=== PATIENT | female | born 1970 | race Caucasian/White ===

== ENCOUNTER 2016-11-02 13:24 | Inpatient (IN) | payer OTHER ==
[~2016-11-02] VITALS: Ht 170.2 cm; Wt 86.2 kg
--- NOTE | 2016-11-02 13:30 | NUR ---
PT TAKEN TO [place] FOR EKG
--- NOTE | 2016-11-02 13:48 | NUR ---
PT TO ED STATING "MY HEART WAS BEATING REALLY FAST", ALSO HAD C/P AT THAT TIME. STARTED A FEW HOURS AGO. CURRENTLY DENIES SOB, DIFF BREATHING, C/P.
--- NOTE | 2016-11-02 13:59 | ED CARDIAC/CP/PALPITATIONS ---
History of Present Illness General Chief Complaint: Palpitations Stated Complaint: PALPITATIONS Source: patient, family Exam Limitations: no limitations Vital Signs & Intake/Output Vital Signs & Intake/Output Vital Signs Date Time Temp Pulse Resp B/P Pulse O2 O2 Flow FiO2 Ox Delivery Rate 11/02 1512 116 18 104/60 97 Nasal 2.0L Cannula 11/02 1452 118 110/70 11/02 1440 116 102/60 11/02 1433 212 18 121/89 11/02 1433 98.1 148 20 121/89 99 Nasal 2.0L Cannula 11/02 1406 98 Room Air 11/02 1345 99.2 123 20 121/84 97 Room Air Allergies Coded Allergies: azithromycin (DIFFICULTY BREATHING 11/02/16) benzonatate (DIFFICULTY BREATHING 11/02/16) oxycodone (From PERCOCET) (ITCH 11/02/16) Reconcile Medications No Known Home Medications Triage Note: PT TO ED STATING "MY HEART WAS BEATING REALLY FAST", ALSO HAD C/P AT THAT TIME. STARTED A FEW HOURS AGO. CURRENTLY DENIES SOB, DIFF BREATHING, C/P. Triage Nurses Notes Reviewed? yes : No Patient currently breastfeeds: No HPI: Patient was at work sitting at her desk when all of a sudden she felt like her heart was racing and she developed a substernal chest pressure radiating to the left shoulder. Patient became a little bit diaphoretic. Patient became concerned when home and changed and then came into the emergency room. Upon presentation to the emergency room she states that the palpitations had resolved however she still has the pressure however it has gotten better. At its worst the chest pressure was 6 out of 10 and is currently 2 out of 10. There is no shortness of breath. There is no orthopnea or dyspnea on exertion. Patient states when she was having the palpitations she felt very lightheaded and like she was given a pass out however she did not do so. Past History Travel History Traveled to No past 21 day No Medical History Any Pertinent Medical History? see below for history Neurological: migraine EENT: NONE Cardiovascular: NONE Respiratory: NONE Gastrointestinal: NONE Hepatic: NONE Renal: NONE Musculoskeletal: NONE Psychiatric: NONE Endocrine: NONE Blood Disorders: NONE Cancer(s): NONE Surgical History Surgical History: non-contributory Psychosocial History What is your primary language Spanish Tobacco Use: Current Daily Use Daily Tobacco Use Amount/Type: => 5 Cigarettes daily ETOH Use: occasional use Illicit Drug Use: denies illicit drug use Family History Hx Contributory? No Review of Systems Review of Systems Constitutional: Reports: no symptoms. EENTM: Reports: no symptoms. Respiratory: Reports: no symptoms. Cardiovascular: Reports: see HPI, chest pain, palpitations. GI: Reports: no symptoms. Genitourinary: Reports: no symptoms. Musculoskeletal: Reports: no symptoms. Skin: Reports: no symptoms. Neurological/Psychological: Reports: no symptoms. Hematologic/Endocrine: Reports: no symptoms. Immunologic/Allergic: Reports: no symptoms. All Other Systems: Reviewed and Negative Physical Exam Physical Exam General Appearance: well developed/nourished, alert, awake, anxious, mild distress Head: atraumatic, normal appearance Eyes: Bilateral: PERRL, EOMI. Ears, Nose, Throat: normal pharynx, normal ENT inspection Neck: normal inspection, supple Respiratory: normal breath sounds, chest non-tender, no respiratory distress, lungs clear Cardiovascular: normal peripheral pulses, tachycardia Gastrointestinal: normal bowel sounds, soft, no organomegaly Back: normal inspection, normal range of motion Extremities: normal inspection, normal capillary refill, normal range of motion, no edema Neurologic/Psych: no motor/sensory deficits, awake, alert, oriented x 3, normal gait, normal mood/affect Skin: intact, normal color, warm/dry Lymphatic: no anterior cervical laison Core Measures ACS in differential dx? Yes Severe Sepsis Present: No Septic Shock Present: No Progress Differential Diagnosis: atrial fibrillation, hyperthyroid, myocarditis, pericarditis, pulmonary embolism, PVCs/PACs, WPW syndrome Plan of Care: Orders Procedure Date/time Status Patient Data 11/02 1609 Active Admit to inpatient 11/02 1608 Active EKG 11/02 1525 Active EKG 11/02 1425 Active THYROID STIMULATING HORMONE 11/02 1403 Complete HUMAN BETA HCG SCREEN 11/02 1403 Complete FREE T4 11/02 1403 Complete D-DIMER 11/02 1403 Complete Telemetry/Seal Extrusion Operator 11/02 1359 Active TROPONIN LEVEL 11/02 1356 Complete COMPREHENSIVE METABOLIC PANEL 11/02 1356 Complete CBC WITHOUT DIFFERENTIAL 11/02 1356 Complete EKG 11/02 1329 Active Current Medications Sig/Thanh Start time Last Medication Dose Stop Time Status Admin Diltiazem HCl 125 MG Q12H 11/02 1615 UNVr (Cardizem DRIP) Dextrose/Water 100 ML (D5W) Laboratory Tests 11/02/16 1404: CBC w Diff NO MAN DIFF REQ, RBC 4.38, MCV 94.8, MCH 32.2 H, RDW 13.6, MPV 8.0, Gran % 58.6, Lymphocytes % 30.4, Monocytes % 6.5, Eosinophils % 4.0, Basophils % 0.5, Absolute Granulocytes 5.3, Absolute Lymphocytes 2.7, Absolute Monocytes 0.6 , Absolute Eosinophils 0.4, Absolute Basophils 0, PUBS MCHC 34.0 11/02/16 1403: Anion Gap 11, Estimated GFR > 60, BUN/Creatinine Ratio 20.0, Glucose 98, Calcium 9.9, Total Bilirubin 0.4, AST 20, ALT 33, Alkaline Phosphatase 74, Troponin I < 0.01, Total Protein 7.5, Albumin 4.0, Globulin 3.5, Albumin/Globulin Ratio 1.1, TSH 0.791, Free T4 1.15, Total Beta HCG NEGATIVE, D-Dimer < 200 11/02/16 1359: TSH Cancelled, Free T4 Cancelled, Total Beta HCG Cancelled, D-Dimer Cancelled Initial ED EKG: SINUS TACHYCARDIA 110 Repeat EKG: changed (a. FIB WITH rvr) Rhythm Strip: SINUS TACHYCARDIA TO svt TO a. FIB WITH rvr Comments: While in the emergency room patient went into an SVT at 225 bpm. Patient became symptomatic feeling very lightheaded and like her heart was racing. Patient was given 6 mg of IV adenosine which broke the SVT into an A. fib with RVR. Departure Departure Disposition: STILL A PATIENT Condition: Guarded Clinical Impression Primary Impression: Atrial fibrillation with RVR Referrals: ANNIKA BROWN,BERNADETTE Galloway (PCP/Family) Departure Forms: Customer Survey General Discharge Information Prescriptions: Current Visit Scripts No Known Home Medications Admission Note Spoke With: Joshua OSBORNE MD Documentation of Exam: Documentation of any treatments & extenuating circumstances including Concerns Regarding Discharge (functional status, medication knowledge or non-compliance, living conditions, etc.) that warrant an admission rather than observation: [ Telemetry monitoring, cardiology evaluation, serial enzymes, IV Cardizem for rate control] Critical Care Note Critical Care Note Critical Care Time: mins: (45 MIN)
--- NOTE | 2016-11-02 14:08 | NUR ---
46 YEAR OLD FEMALE STATES THAT ABOUT 2 HOURS AGO SHE FELT LIKE HER HEART STARTED RACING AND SHE WAS FEELING SOB. ALSO COMPLAINS OF A PRESSURE IN HER CHEST. PAIN IS NON RADIATING, O2 SAT 98 % ON RA, SINUS TACH ON MONITOR WITH HR 110-120 AT THIS TIME. LABS SENT
[2016-11-02 14:20] LABS: ABSOLUTE BASOPHIL COUNT 0 /CUMM (0.0-0.2); ABSOLUTE EOSINOPHIL COUNT 0.4 /CUMM (0.0-0.7); ABSOLUTE GRANULOCYTE CT 5.3 /CUMM (1.4-6.5); ABSOLUTE LYMPH COUNT 2.7 /CUMM (1.2-3.4); ABSOLUTE MONOCYTE COUNT 0.6 /CUMM (0.10-0.60); BASOPHIL % 0.5 % (0.0-2.0); GRANULOCYTE % 58.6 % (42.2-75.2); HEMATOCRIT 41.5 % (37-47); MEAN CORPUSCULAR HGB 32.2 PG (27.0-31.0); MEAN CORPUSCULAR VOLUME 94.8 FL (81.0-99.0); PLATELET COUNT 297 /CUMM (130-400); RBC DISTRIBUTION WIDTH 13.6 % (11.5-14.5); RED BLOOD CELL CT 4.38 /CUMM (4.20-5.40)
--- NOTE | 2016-11-02 14:35 | NUR ---
THIS NURSE NOTED PT SVT ON MONITOR HR 248, IMMEDIATLY AT BEDSIDE , LINE PLACED FLUIDS HOOKED UP AND PT HOOKED TO EKG FOR RHYTHM STRIP,PT MEDICATED WITH 6 MG ADENOSINE , AFTER MED PT SINUS TACH HR 128. HR INCREASED TO 160, PT MEDICATED PER ORDER WITH 25 MG PO METOPROLOL AND 5 MG IV . PT STATES THAT SHE FEELS HEAVINESS IN HER CHEST. BP121/89
--- NOTE | 2016-11-02 14:43 | NUR ---
BP102/60 MANUAL, FLUIDS CONTINUE TO INFUSE
--- NOTE | 2016-11-02 14:48 | NUR ---
PT SINUS TACH ON MONITOR HR 114 AT THIS T AMRIT
--- NOTE | 2016-11-02 15:13 | NUR ---
RE-EVAL BY ER PATIENT DEINES CP OR SOB
--- NOTE | 2016-11-02 15:27 | NUR ---
HR TRENDING HR INCREASING PERIODS OF A-FIB REPEAT EKG DONE PATIENT DENIES CP OR SOB
--- NOTE | 2016-11-02 16:17 | NUR ---
SEEN BY CARDIOLOGY CARDIZEM GTT AT 5 MG PER HR
--- NOTE | 2016-11-02 16:36 | NUR ---
B/P / CARDIZEM GTT DECREASED TO 2.5 MG/HR
--- NOTE | 2016-11-02 16:53 | History & Physical ---
POPPY [place] [place]: General Information and HPI MD Statement: I have seen and personally examined NICKOLAS LANGFORD and documented this H&P. The patient is a 46 year old F who presented with a patient stated chief complaint of chest pain and palpitations. Source of Information: patient, old records Exam Limitations: no limitations History of Present Illness: 46 y/o F with no significant PMHx who presents with left-sided chest pain radiating to left shoulder of several hours radiation. Pain started acutely on the afternoon of current presentation while patient was sitting at desk. Initially it was 8/10 and sharp however 10 minutes later, it evolved into chest heaviness. Sharp pain recurred again while in the ED. There are no alleviating or exacerbating factors. Pain is associated with shortness of breath but not nausea, vomiting, diaphoresis or lightheadedness. Patient complains of a headache that has been ongoing for several days. Of note, patient has been under significant stress lately due to family issues. Patient reports drinking two cups of coffee in the morning before the onset of chest pain which is her usual intake. Of note patient presented to the ED with chest pain in 2009 with an EKG revealing sinus tachycardia with heart rate in the 90s and was subsequently discharged home on Motrin. Of note, family history is significant for arrhythmia in her father. Allergies/Medications Allergies: Coded Allergies: azithromycin (DIFFICULTY BREATHING 11/02/16) benzonatate (DIFFICULTY BREATHING 11/02/16) oxycodone (From PERCOCET) (ITCH 11/02/16) Home Med list Apixaban (Eliquis) 5 MG TABLET 5 MG PO BID BLOOD THINNER FOR AFIB Diltiazem HCl (Cardizem) 30 MG TABLET 30 MG PO Q8 ATRIAL FIBRILLATION NEW Past History Travel History Traveled to No past 21 day No Medical History Neurological: migraine EENT: NONE Cardiovascular: NONE Respiratory: NONE Gastrointestinal: NONE Hepatic: cholelithiasis Renal: NONE Musculoskeletal: NONE Psychiatric: NONE Endocrine: NONE Blood Disorders: NONE Cancer(s): NONE COMPLIANCE TESTER/Reproductive: overian cyst Surgical History Surgical History: cholecystectomy, unilateral salphingo-oophorectomy Past Family/Social History Family History Relations & Conditions if any FATHER Cardiac arrhythmia Psychosocial History Where do you live? Home Who Do You Live With? boyfriend Services at Home: None Primary Language: Kiswahili Smoking Status: Current Everyday Smoker (Smokes 1/2 PPD, ~10 Pack-Years) ETOH Use: occasional use Illicit Drug Use: denies illicit drug use Functional Ability ADLs Independent: dressing, eating, toileting, bathing. Ambulation: independent IADLs Independent: shopping, housework, finances, food prep, telephone, transportation , medication admin. 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 EENTM: Reports: no symptoms. Cardiovascular: Reports: chest pain, palpitations. Denies: peripheral edema. Respiratory: Reports: short of breath (only with chest pain). GI: Denies: abdominal pain, constipation, diarrhea, nausea, vomiting. Genitourinary: Reports: no symptoms. Musculoskeletal: Reports: no symptoms. Skin: Reports: no symptoms. Neurological/Psychological: Reports: headache. Hematologic/Endocrine: Reports: no symptoms. Immunologic/Allergic: Reports: no symptoms. All Other Systems: Reviewed and Negative Exam & Diagnostic Data Last 24 Hrs of Vital Signs/I&O Vital Signs Date Time Temp Pulse Resp B/P Pulse O2 O2 Flow FiO2 Ox Delivery Rate 11/03 0051 98.0 95 20 95/60 97 Room Air 11/02 1838 98.3 123 17 105/68 97 Room Air 11/02 1731 112 18 96/55 97 Room Air 11/02 1720 112 18 95/56 97 Room Air 11/02 1637 118 18 92/54 97 Room Air 11/02 1617 124 18 104/56 97 Room Air 11/02 1512 116 18 104/60 97 Nasal 2.0L Cannula 11/02 1452 118 110/70 11/02 1440 116 102/60 11/02 1433 212 18 121/89 11/02 1433 98.1 148 20 121/89 99 Nasal 2.0L Cannula 11/02 1406 98 Room Air 11/02 1345 99.2 123 20 121/84 97 Room Air Intake & Output 11/03 0800 11/03 0000 11/02 1600 Intake Total 1630 0 Output Total Balance 1630 0 Intake, IV 1510 Intake, Oral 120 0 Patient 86.183 kg 95.254 kg Weight Physical Exam General Appearance Alert, Oriented X3, No Acute Distress HEENT Atraumatic, Mucous Membr. moist/pink Neck Supple Cardiovascular Normal S1, Normal S2, Irregular Rate, Tachycardic Lungs Clear to Auscultation Abdomen Soft, No Tenderness, Positive Bowel Sounds Extremities No Clubbing, No Cyanosis, No Edema Last 24 Hrs of Labs/Sudheer: Laboratory Tests 11/02/162044: Troponin I < 0.01 11/02/16 1404: CBC w Diff NO MAN DIFF REQ, RBC 4.38, MCV 94.8, MCH 32.2 H, RDW 13.6, MPV 8.0, Gran % 58.6, Lymphocytes % 30.4, Monocytes % 6.5, Eosinophils % 4.0, Basophils % 0.5, Absolute Granulocytes 5.3, Absolute Lymphocytes 2.7, Absolute Monocytes 0.6 , Absolute Eosinophils 0.4, Absolute Basophils 0, PUBS MCHC 34.0 11/02/16 1403: Anion Gap 11, Estimated GFR > 60, BUN/Creatinine Ratio 20.0, Glucose 98, Calcium 9.9, Total Bilirubin 0.4, AST 20, ALT 33, Alkaline Phosphatase 74, Troponin I < 0.01, Total Protein 7.5, Albumin 4.0, Globulin 3.5, Albumin/Globulin Ratio 1.1, TSH 0.791, Free T4 1.15, Total Beta HCG NEGATIVE, D-Dimer < 200 11/02/16 1359: TSH Cancelled, Free T4 Cancelled, Total Beta HCG Cancelled, D-Dimer Cancelled Diagnostic Data EKG Results Atrial fibrillation HR 122 QTc 428 Assessment/Plan Assessment: 46 y/o M with no significant PMHx who presents with new-onset atrial fibrillation and chest pain. #New onset atrial fibrillation: Etiology unclear Of note, father has a history of cardiac arrhythmia. Thyroid function tests normal. * Place under observation in telemetry for continuous cardiac monitoring. * Cardiology following. Appreciate recs. * Continue Cardizem IV drip. * ECHO pending. * No need for anticoagulation given [id number] score of 0. * Check lipid panel in the AM. * Discharge patient on beta-emerald tomorrow if patient spontaneously reverts to normal sinus rhythm. * Check CBC and BMP. #Chest pain: Troponin negative. EKG without ST-T wave abnormalities. * Serial EKG and troponins. Diet: Regular DVT PPx: Lovenox and ALPs CODE: FULL As Ranked By This Provider Problem List: 1. Chest pain 2. New onset atrial fibrillation Core Measures/Miscellaneous Acute Coronary Syndrome ACS Diagnosis: No Cerebrovascular Accident CVA/TIA Diagnosis: No Congestive Heart Failure CHF Diagnosis: No Venous Thromboembolism VTE Risk Factors: Age > 40 No [facility] VTE prophylaxis d/t: No contraindications No VTE Pharm Prophylaxis d/t: No contraindications VTE Diagnosis: No VTE Type: NONE VTE Confirmed by (Test): NONE Severe Sepsis Severe Sepsis Present: No Septic Shock Septic Shock Present: No Miscellaneous Documentation Attending Case Discussed With: Joshua OSBORNE MD Primary Care Physician: BERNADETTE ROBLERO MD Patient sees these Specialists None Level of Patient Care: Telemetry CAILIN VOGT 11/02/16 2024: Resident Review Statement Resident Statement: examined this patient, discussed with internet project manager, agreed with internet project manager, amended to note Other Findings: 46-year-old lady with no significant past medical history came with chief complaint of chest pain and chest heaviness to the emergency room today. Patient reported in the morning she had chest pain radiated to left hand with palpitations and lightheadedness and she came to the hospital for that. Patient denies any nausea, vomiting, fevers, chills, recent sick contacts, recent travel. Patient does report of having palpitation long time ago once. In the ED she developed SVT and after getting adenosine and metoprolol IV and by mouth for 10 changed to A. fib and she was put on IV Cardizem. However her blood pressure dropped to 92/54 and 2 L normal saline bolus was given as well. Patient is social drinker and an her father had a history of arrhythmia long time ago Other patient vital signs were unremarkable, physical exam is noted for tachycardia full details are above. EKG showed A. fib with no acute ST-T changes, 122, QTC 428 CBC, BEP, troponin, TSH were within normal limits Assessment and plan #New onset A. fib with chest pain -Chadvasc score 0 and patient just had palpitations today so no need for anticoagulation for now -titrate Cardizem 2 get her heart rate lower than 110 per min -EKG and troponin 3 -Echocardiogram in the morning -Check lipid panel tomorrow -Aspirin 325 given once, Tylenol for pain Prophylaxis radar mechanic and levonox, full code, Tylenol for pain, regular diet
--- NOTE | 2016-11-02 16:55 | NUR ---
BED ASSIGNMENT 176
--- NOTE | 2016-11-02 17:00 | NUR ---
SEEN BY HOUSE STAFF B/P 91/47 HR 112 A-FIB CARDIZEM AT 2.5 MG/HR PATIENT DENIES CP OR SOB DENIES DIZZINESS
--- NOTE | 2016-11-02 17:29 | NUR ---
REPORT GIVEN TO TELEMTRY MONITOR A-FIB RATE 112 B/P 96/55 DENIES WEAKNESS OR DIZZINESS CARDIZEM CONTINUES AT 2.5 MG/HR 2ND LITER NS AT BOLUS DENIES CP OR SOB
--- NOTE | 2016-11-02 18:10 | Cons- Cardiology ---
General Information and HPI Consulting Request Date of Consult: 11/02/16 Requested By: Joshua OSBORNE MD Reason for Consult: Atrial fibrillation Source of Information: patient, family Exam Limitations: no limitations History of Present Illness: 46 year old female with no significant past history. This AM while seated developed rapid heart rate. Initially in the ER she was thought to be in SVT. Given adenosine which slowed the heart rate but subsequently the rate continued to increase. ECG and monitor consistent with atrial fibrillation. Discussed in detail with the patient and her . No obvious prior history of palpitations. Allergies/Medications Allergies: Coded Allergies: azithromycin (DIFFICULTY BREATHING 11/02/16) benzonatate (DIFFICULTY BREATHING 11/02/16) oxycodone (From PERCOCET) (ITCH 11/02/16) Home Med List: No Known Home Medications Current Medications: Current Medications Sig/Thanh Start time Last Medication Dose Route Stop Time Status Admin Acetaminophen 650 MG Q6P PRN 11/02 1745 AC PO Adenosine 6 MG ONCE ONE 11/02 1430 DC 11/02 IV 11/02 1431 1433 Adenosine 0 .STK-MED ONE 11/02 1429 DC IV Aspirin 325 MG ONCE ONE 11/02 1615 DC PO 11/02 1616 Diltiazem HCl 125 MG Q12H 11/02 1615 AC 11/02 Dextrose/Water 100 ML IV 1618 Diltiazem HCl 0 .STK-MED ONE 11/02 1609 DC IV Diltiazem HCl 0 .STK-MED ONE 11/02 1600 DC IV Metoprolol Tartrate 5 MG ONCE ONE 11/02 1445 DC 11/02 IV 11/02 1446 1448 Metoprolol Tartrate 25 MG ONCE ONE 11/02 1445 DC 11/02 PO 11/02 1446 1448 Metoprolol Tartrate 0 .STK-MED ONE 11/02 1438 DC IV Metoprolol Tartrate 0 .STK-MED ONE 11/02 1437 DC PO Sodium Chloride 1,000 ML BOLUS ONE 11/02 1645 DC IV 11/02 1744 Sodium Chloride 1,000 ML BOLUS ONE 11/02 1645 DC 11/02 IV 11/02 1744 1739 Past History Travel History Traveled to No past 21 day No Medical History Neurological: migraine EENT: NONE Cardiovascular: NONE Respiratory: NONE Gastrointestinal: NONE Hepatic: NONE Renal: NONE Musculoskeletal: NONE Psychiatric: NONE Endocrine: NONE Blood Disorders: NONE Cancer(s): NONE Surgical History Surgical History: non-contributory Psychosocial History ETOH Use: occasional use Illicit Drug Use: denies illicit drug use Exam & Diagnostic Data Vital Signs and I&O Vital Signs Date Time Temp Pulse Resp B/P Pulse O2 O2 Flow FiO2 Ox Delivery Rate 11/02 1731 112 18 96/55 97 Room Air 11/02 1720 112 18 95/56 97 Room Air 11/02 1637 118 18 92/54 97 Room Air 11/02 1617 124 18 104/56 97 Room Air 11/02 1512 116 18 104/60 97 Nasal 2.0L Cannula 11/02 1452 118 110/70 11/02 1440 116 102/60 11/02 1433 212 18 121/89 11/02 1433 98.1 148 20 121/89 99 Nasal 2.0L Cannula 11/02 1406 98 Room Air 11/02 1345 99.2 123 20 121/84 97 Room Air Intake & Output 11/02 1600 11/02 0800 11/02 0000 11/01 1600 11/01 0800 11/01 0000 Intake Total 0 Output Total Balance 0 Intake, Oral 0 Patient 210 lb Weight Physical Exam: WD, WN, WF, NAD, alert and oriented HEENT: normal NEck : normal, JVP normal, carotids normal Chest: Clear bilaterally Heart: Irregular tachycardia, S1, S2, 1/6 systolic murmur Ext: normal Labs/Sudheer Results: Laboratory Tests 11/02 11/02 11/02 1404 1403 1359 Chemistry Sodium (137 - 145 mmol/L) 138 Potassium (3.5 - 5.1 mmol/L) 4.6 Chloride (98 - 107 mmol/L) 102 Carbon Dioxide (22 - 30 mmol/L) 25 Anion Gap (5 - 16) 11 BUN (7 - 17 mg/dL) 16 Creatinine (0.5 - 1.0 mg/dL) 0.8 Estimated GFR (>60 ml/min) > 60 BUN/Creatinine Ratio (7 - 25 %) 20.0 Glucose (65 - 99 mg/dL) 98 Calcium (8.4 - 10.2 mg/dL) 9.9 Total Bilirubin (0.2 - 1.3 mg/dL) 0.4 AST (14 - 36 U/L) 20 ALT (9 - 52 U/L) 33 Alkaline Phosphatase (<127 U/L) 74 Troponin I (< 0.11 ng/ml) < 0.01 Total Protein (6.3 - 8.2 g/dL) 7.5 Albumin (3.5 - 5.0 g/dL) 4.0 Globulin (1.9 - 4.2 gm/dL) 3.5 Albumin/Globulin Ratio (1.1 - 2.2 %) 1.1 TSH (0.270 - 4.200 uIU/mL) 0.791 Cancelled Free T4 (0.64 - 1.79 ng/dL) 1.15 Cancelled Total Beta HCG (NEGATIVE) NEGATIVE Cancelled Coagulation D-Dimer (70 - 232 ng/ml) < 200 Cancelled Hematology CBC w Diff NO MAN DIFF REQ WBC (4.8 - 10.8 /CUMM) 9.0 RBC (4.20 - 5.40 /CUMM) 4.38 Hgb (12.0 - 16.0 G/DL) 14.1 Hct (37 - 47 %) 41.5 MCV (81.0 - 99.0 FL) 94.8 MCH (27.0 - 31.0 PG) 32.2 H RDW (11.5 - 14.5 %) 13.6 Plt Count (130 - 400 /CUMM) 297 MPV (7.4 - 10.4 FL) 8.0 Gran % (42.2 - 75.2 %) 58.6 Lymphocytes % (20.5 - 51.1 %) 30.4 Monocytes % (1.7 - 9.3 %) 6.5 Eosinophils % (0 - 5 %) 4.0 Basophils % (0.0 - 2.0 %) 0.5 Absolute Granulocytes (1.4 - 6.5 /CUMM) 5.3 Absolute Lymphocytes (1.2 - 3.4 /CUMM) 2.7 Absolute Monocytes (0.10 - 0.60 /CUMM) 0.6 Absolute Eosinophils (0.0 - 0.7 /CUMM) 0.4 Absolute Basophils (0.0 - 0.2 /CUMM) 0 PUBS MCHC (33.0 - 37.0 G/DL) 34.0 Diagnostic Data EKG Results Atrial fibrillation with a rapid rate and NSSTTWCs Assessment/Plan Assessment/Plan Assessment: 1. Paroxysmal atrial fibrillation 2. Murmur Recommendations: - Monitor on telemetry - Full lab evaluation - IV cardizem titrated to heart rate - NO anticoagulation for now. - Echocardiogram - If the patient spontaneously reverts to NSR, we will start her on BB tomorrow and likely discharge. - If she remains in AF, further plans in AM Consult Acknowledgment - Thank you for your consult request.
[2016-11-02 18:38] VITALS: BP 105/68
[2016-11-03 00:51] VITALS: BP 95/60
[2016-11-03 04:00] VITALS: BP 95/60
[2016-11-03 05:29] LABS: ABSOLUTE BASOPHIL COUNT 0 /CUMM (0.0-0.2); ABSOLUTE EOSINOPHIL COUNT 0.4 /CUMM (0.0-0.7); ABSOLUTE GRANULOCYTE CT 4.7 /CUMM (1.4-6.5); ABSOLUTE LYMPH COUNT 2.9 /CUMM (1.2-3.4); ABSOLUTE MONOCYTE COUNT 0.5 /CUMM (0.10-0.60); BASOPHIL % 0.5 % (0.0-2.0); EOSINOPHIL % 4.5 % (0-5); GRANULOCYTE % 55.2 % (42.2-75.2); HEMATOCRIT 37.3 % (37-47); MEAN CORPUSCULAR HGB 32.4 PG (27.0-31.0); MEAN CORPUSCULAR HGB CONC 33.9 G/DL (33.0-37.0); MEAN CORPUSCULAR VOLUME 95.7 FL (81.0-99.0); MEAN PLATELET VOLUME 8.4 FL (7.4-10.4); PLATELET COUNT 260 /CUMM (130-400); RBC DISTRIBUTION WIDTH 13.4 % (11.5-14.5); WHITE BLOOD CELL COUNT 8.6 /CUMM (4.8-10.8)
--- NOTE | 2016-11-03 07:03 | NUR ---
BLOOD PRESSURE- 95/60, HR-90-100, CARDIZEM GTT RUNNING AT 2.5 ML/H. 1 500 ML BOLUS BAG GIVEN ORDERED. MAINTANANCE FLUIDS AT 75/ML/H. PT ASYMPTOMATIC. WILL CONTINUE TO MONITOR.
--- NOTE | 2016-11-03 08:02 | PN- Housestaff ---
Subjective Follow-up For: new onset afib Tele-Events Since Last Visit: A. fib, 86-108 Subjective: I Have seen and examined the patient. Patient does of any major chief complaints. Patient is still in A. fib.All pertinent symptoms are negative except stated as above. Review of Systems Constitutional: Reports: no symptoms. Objective Last 24 Hrs of Vital Signs/I&O Vital Signs Date Time Temp Pulse Resp B/P Pulse O2 O2 Flow FiO2 Ox Delivery Rate 11/03 0823 97.7 98 16 95/65 96 Room Air 11/03 0400 100 95/60 11/03 0051 98.0 95 20 95/60 97 Room Air 11/02 1838 98.3 123 17 105/68 97 Room Air 11/02 1731 112 18 96/55 97 Room Air 11/02 1720 112 18 95/56 97 Room Air 11/02 1637 118 18 92/54 97 Room Air 11/02 1617 124 18 104/56 97 Room Air 11/02 1512 116 18 104/60 97 Nasal 2.0L Cannula 11/02 1452 118 110/70 11/02 1440 116 102/60 11/02 1433 212 18 121/89 11/02 1433 98.1 148 20 121/89 99 Nasal 2.0L Cannula 11/02 1406 98 Room Air 11/02 1345 99.2 123 20 121/84 97 Room Air Intake & Output 11/03 1600 11/03 0800 11/03 0000 Intake Total 1040 1630 Output Total Balance 1040 1630 Intake, IV 1020 1510 Intake, Oral 20 120 Patient 190 lb Weight Physical Exam General Appearance: Alert, Oriented X3, Cooperative, No Acute Distress Other Physical Findings: HEENT Atraumatic, Mucous Membr. moist/pink Neck Supple Cardiovascular Normal S1, Normal S2, Irregular Rate, Tachycardic Lungs Clear to Auscultation Abdomen Soft, No Tenderness, Positive Bowel Sounds Extremities No Clubbing, No Cyanosis, No Edema Current Medications: Current Medications Sig/Thanh Start time Last Medication Dose Route Stop Time Status Admin Acetaminophen 650 MG Q6P PRN 11/02 1745 AC 11/02 PO 1854 Adenosine 6 MG ONCE ONE 11/02 1430 DC 11/02 IV 11/02 1431 1433 Adenosine 0 .STK-MED ONE 11/02 1429 DC IV Aspirin 325 MG ONCE ONE 11/02 1615 DC 11/02 PO 11/02 1616 1854 Diltiazem HCl 125 MG Q12H 11/02 1615 AC 11/02 Dextrose/Water 100 ML IV 1618 Diltiazem HCl 0 .STK-MED ONE 11/02 1609 DC IV Diltiazem HCl 0 .STK-MED ONE 11/02 1600 DC IV Enoxaparin Sodium 40 MG DAILY 11/03 1000 AC SC Ibuprofen 400 MG ONCE ONE 11/02 2245 DC PO 11/02 2246 Metoprolol Tartrate 5 MG ONCE ONE 11/02 1445 DC 11/02 IV 11/02 1446 1448 Metoprolol Tartrate 25 MG ONCE ONE 11/02 1445 DC 11/02 PO 11/02 1446 1448 Metoprolol Tartrate 0 .STK-MED ONE 11/02 1438 DC IV Metoprolol Tartrate 0 .STK-MED ONE 11/02 1437 DC PO Patient Medication 1 UNIT ONE NR 11/02 1900 DC Teaching ED 11/02 1930 Sodium Chloride 1,000 ML Q13H 11/03 0015 DC 11/03 IV 11/03 1014 0026 Sodium Chloride 500 ML BOLUS ONE 11/02 2245 DC 11/02 IV 11/02 2344 2242 Sodium Chloride 1,000 ML BOLUS ONE 11/02 1645 DC IV 11/02 1744 Sodium Chloride 1,000 ML BOLUS ONE 11/02 1645 DC 11/02 IV 11/02 1744 1739 Last 24 Hrs of Lab/Sudheer Results Last 24 Hrs of Labs/Mics: Laboratory Tests 11/03/16 0445: Troponin I < 0.01 11/03/16 0445: Anion Gap 9, Estimated GFR > 60, BUN/Creatinine Ratio 17.1, Triglycerides 224 H , Cholesterol 173, LDL Cholesterol, Calc 84, HDL Cholesterol 45, Cholesterol/HDL Ratio 4, CBC w Diff NO MAN DIFF REQ, RBC 3.90 L, MCV 95.7, MCH 32.4 H, RDW 13.4, MPV 8.4, Gran % 55.2, Lymphocytes % 33.5, Monocytes % 6.3, Eosinophils % 4.5, Basophils % 0.5, Absolute Granulocytes 4.7, Absolute Lymphocytes 2.9, Absolute Monocytes 0.5, Absolute Eosinophils 0.4, Absolute Basophils 0, PUBS MCHC 33.9 11/02/162044: Troponin I < 0.01 11/02/16 1404: CBC w Diff NO MAN DIFF REQ, RBC 4.38, MCV 94.8, MCH 32.2 H, RDW 13.6, MPV 8.0, Gran % 58.6, Lymphocytes % 30.4, Monocytes % 6.5, Eosinophils % 4.0, Basophils % 0.5, Absolute Granulocytes 5.3, Absolute Lymphocytes 2.7, Absolute Monocytes 0.6 , Absolute Eosinophils 0.4, Absolute Basophils 0, PUBS MCHC 34.0 11/02/16 1403: Anion Gap 11, Estimated GFR > 60, BUN/Creatinine Ratio 20.0, Glucose 98, Calcium 9.9, Total Bilirubin 0.4, AST 20, ALT 33, Alkaline Phosphatase 74, Troponin I < 0.01, Total Protein 7.5, Albumin 4.0, Globulin 3.5, Albumin/Globulin Ratio 1.1, TSH 0.791, Free T4 1.15, Total Beta HCG NEGATIVE, D-Dimer < 200 11/02/16 1359: TSH Cancelled, Free T4 Cancelled, Total Beta HCG Cancelled, D-Dimer Cancelled Assessment/Plan Assessment: 46-year-old lady with no significant past medical history came with chief complaint of chest pain and chest heaviness to the emergency room today. Patient reported in the morning she had chest pain radiated to left hand with palpitations and lightheadedness and she came to the hospital for that. Patient denies any nausea, vomiting, fevers, chills, recent sick contacts, recent travel. Patient does report of having palpitation long time ago once. In the ED she developed SVT and after getting adenosine and metoprolol IV and by mouth for 10 changed to A. fib and she was put on IV Cardizem. However her blood pressure dropped to 92/54 and 2 L normal saline bolus was given as well. Patient is social drinker and an her father had a history of arrhythmia long time ago Other patient vital signs were unremarkable, physical exam is noted for tachycardia full details are above. EKG showed A. fib with no acute ST-T changes, 122, QTC 428 CBC, BEP, troponin, TSH were within normal limits Assessment and plan #New onset A. 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 Atrial fibrillation with RVR Pain Ratin Pain Location: no pain Pain Goal: Remain pain free Pain Plan: no pain Tomorrow's Labs & Rationales: BEP for mag and k
[2016-11-03 08:23] VITALS: BP 95/65
--- NOTE | 2016-11-03 08:30 | Patient Discharge Instructions ---
Discharge Instructions General Discharge Information You were seen/treated for: atrial fibrilation Special Instructions: -please follow up with you PCP 7 days after discharge -please follow up with your cardioloigst 7 days after discharge. -please come back to the hospital if your symptoms got worse Diet Continue normal diet: Yes Recommended Diet: Heart Healthy Activity Full Activity/No Limits: Yes (as tolerated) Activity Self Limited: Yes Acute Coronary Syndrome Inclusion Criteria At DC or during hospital stay patient has or had the following: ACS DIAGNOSIS No Discharge Core Measures Meds if any: Prescribed or Continued at Discharge Meds if any: NOT Prescribed or Continued at Discharge Congestive Heart Failure Inclusion Criteria At DC or during hospital stay patient has or had the following: CHF DIAGNOSIS No Discharge Core Measures Meds if any: Prescribed or Continued at Discharge Meds if any: NOT Prescribed or Continued at Discharge Cerebrovascular accident Inclusion Criteria At DC or during hospital stay patient has or had the following: CVA/TIA Diagnosis No Discharge Core Measures Meds if any: Prescribed or Continued at Discharge Meds if any: NOT Prescribed or Continued at Discharge Venous thromboembolism Inclusion Criteria VTE Diagnosis No VTE Type NONE VTE Confirmed by (Test) NONE Discharge Core Measures - Per Current guidelines, there needs to be overlap - treatment for the first 5 days of Warfarin therapy. - If discharged on Warfarin prior to 5 days of - overlap therapy, the patient will need to be - assessed for post discharge needs including - *Post discharge parental anticoagulation - *Warfarin and/or parental anticoagulation education - *Follow up date to check INR post discharge At least 5 days overlap therapy as Inpatient No Meds if any: Prescribed or Continued at Discharge Note: Overlap Therapy is Warfarin and Anticoagulant Meds if any: NOT Prescribed or Continued at Discharge
--- NOTE | 2016-11-03 09:25 | PN- Housestaff ---
Assessment/Plan Assessment: 46-year-old lady with no significant past medical history came with chief complaint of chest pain and chest heaviness to the emergency room today. Patient reported in the morning she had chest pain radiated to left hand with palpitations and lightheadedness and she came to the hospital for that. Patient denies any nausea, vomiting, fevers, chills, recent sick contacts, recent travel. Patient does report of having palpitation long time ago once. In the ED she developed SVT and after getting adenosine and metoprolol IV and by mouth for 10 changed to A. fib and she was put on IV Cardizem. However her blood pressure dropped to 92/54 and 2 L normal saline bolus was given as well. Patient is social drinker and an her father had a history of arrhythmia long time ago Other patient vital signs were unremarkable, physical exam is noted for tachycardia full details are above. EKG showed A. fib with no acute ST-T changes, 122, QTC 428 CBC, BEP, troponin, TSH were within normal limits Assessment and plan #New onset A. 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
[2016-11-03] MEDS ORDERED: CARDIZEM30 M1 PO (13:00)
[2016-11-03] MEDS ORDERED: ELIQUIS5 M1 PO (13:00)
[2016-11-03 13:55] VITALS: BP 98/70
--- NOTE | 2016-11-03 14:56 | PN- Cardiology ---
Subjective Subjective: The patient is stable today and remains asymptomatic. Unfortunately, she remains in atrial fibrillation with better rate control. Situation was discussed in detail with the patient and her . Objective Vital Signs and I&Os Vital Signs Date Time Temp Pulse Resp B/P Pulse O2 O2 Flow FiO2 Ox Delivery Rate 11/03 1355 95 98/70 11/03 0823 97.7 98 16 95/65 96 Room Air 11/03 0400 100 95/60 11/03 0051 98.0 95 20 95/60 97 Room Air 11/02 1838 98.3 123 17 105/68 97 Room Air 11/02 1731 112 18 96/55 97 Room Air 11/02 1720 112 18 95/56 97 Room Air 11/02 1637 118 18 92/54 97 Room Air 11/02 1617 124 18 104/56 97 Room Air 11/02 1512 116 18 104/60 97 Nasal 2.0L Cannula Intake & Output 11/03 1600 11/03 0800 11/03 0000 11/02 1600 11/02 0800 11/02 0000 Intake Total 1025 1040 1630 0 Output Total Balance 1025 1040 1630 0 Intake, IV 545 1020 1510 Intake, Oral 480 20 120 0 Patient 190 lb 210 lb Weight Current Medications: Current Medications Sig/Thanh Start time Last Medication Dose Route Stop Time Status Admin Acetaminophen 650 MG Q6P PRN 11/02 1745 AC 11/03 PO 1018 Apixaban 5 MG BID 11/03 2200 DC PO Apixaban 5 MG BID 11/03 1415 AC 11/03 PO 1429 Aspirin 325 MG ONCE ONE 11/02 1615 DC 11/02 PO 11/02 1616 1854 Diltiazem HCl 30 MG Q8 11/03 1400 AC 11/03 PO 1355 Diltiazem HCl 125 MG Q12H 11/02 1615 AC 11/02 Dextrose/Water 100 ML IV 11/03 1500 1618 Diltiazem HCl 0 .STK-MED ONE 11/02 1609 DC IV Diltiazem HCl 0 .STK-MED ONE 11/02 1600 DC IV Enoxaparin Sodium 40 MG DAILY 11/03 1000 DC 11/03 SC 1020 Ibuprofen 400 MG ONCE ONE 11/02 2245 DC PO 11/02 2246 Patient Medication 1 UNIT ONE NR 11/02 1900 DC Teaching ED 11/02 1930 Sodium Chloride 1,000 ML Q13H 11/03 0015 DC 11/03 IV 11/03 1014 0026 Sodium Chloride 500 ML BOLUS ONE 11/02 2245 DC 11/02 IV 11/02 2344 2242 Sodium Chloride 1,000 ML BOLUS ONE 11/02 1645 DC IV 11/02 1744 Sodium Chloride 1,000 ML BOLUS ONE 11/02 1645 DC / IV 11/02 1744 1739 Results Last 48 Hrs of Labs/Mics: Laboratory Tests 11/03/16 0445: Troponin I < 0.01 11/03/16 0445: Anion Gap 9, Estimated GFR > 60, BUN/Creatinine Ratio 17.1, Triglycerides 224 H , Cholesterol 173, LDL Cholesterol, Calc 84, HDL Cholesterol 45, Cholesterol/HDL Ratio 4, CBC w Diff NO MAN DIFF REQ, RBC 3.90 L, MCV 95.7, MCH 32.4 H, RDW 13.4, MPV 8.4, Gran % 55.2, Lymphocytes % 33.5, Monocytes % 6.3, Eosinophils % 4.5, Basophils % 0.5, Absolute Granulocytes 4.7, Absolute Lymphocytes 2.9, Absolute Monocytes 0.5, Absolute Eosinophils 0.4, Absolute Basophils 0, PUBS MCHC 33.9 11/02/165: Troponin I < 0.01 11/02/16 1404: CBC w Diff NO MAN DIFF REQ, RBC 4.38, MCV 94.8, MCH 32.2 H, RDW 13.6, MPV 8.0, Gran % 58.6, Lymphocytes % 30.4, Monocytes % 6.5, Eosinophils % 4.0, Basophils % 0.5, Absolute Granulocytes 5.3, Absolute Lymphocytes 2.7, Absolute Monocytes 0.6 , Absolute Eosinophils 0.4, Absolute Basophils 0, PUBS MCHC 34.0 11/02/16 1403: Anion Gap 11, Estimated GFR > 60, BUN/Creatinine Ratio 20.0, Glucose 98, Calcium 9.9, Total Bilirubin 0.4, AST 20, ALT 33, Alkaline Phosphatase 74, Troponin I < 0.01, Total Protein 7.5, Albumin 4.0, Globulin 3.5, Albumin/Globulin Ratio 1.1, TSH 0.791, Free T4 1.15, Total Beta HCG NEGATIVE, D-Dimer < 200 11/02/16 1359: TSH Cancelled, Free T4 Cancelled, Total Beta HCG Cancelled, D-Dimer Cancelled Assessment/Plan Assessment/Plan Assessment: 1. Paroxysmal atrial fibrillation-had a long discussion with the patient and her today. The patient is feeling fine and her rate control is improved. She would prefer not to stay in the hospital if possible. Recommendations: -The patient will be started on Cardizem 30 mg 3 times daily. -The patient also be started on Eliquis 5 mg twice daily. -The patient will be seen in the office in 48 hours for an ECG. -At that time, if the patient has reverted to sinus rhythm, we will discontinue her anticoagulation and start her on metoprolol 25 mg daily. -If that time, the patient remains in atrial fibrillation, we will consider her for outpatient YURY/cardioversion, continue her medications, and maintain her anticoagulation 2 weeks post-cardioversion. -Long-term, the patient will be kept on metoprolol for 3 months and no anticoagulation -Echocardiogram as outpatient Continue telemetry? No
--- NOTE | 2016-12-02 08:16 | Discharge Summary ---
Visit Information Visit Dates Admission Date: 11/02/16 Discharge Date: 11/03/16 Hospital Course Course Attending Physician: Joshua OSBORNE MD Primary Care Physician: BERNADETTE ROBLERO MD Hospital Course: The patient was admitted to the telemetry floor with new onset atrial fibrillation. Overnight, her rate remained controlled. THE patient was stable and after an extended discussion, she was discharged home on cardizem for rate control and eliquis for protection against cardioembolism. She will be followed up by cardiology and her primary care physician as an outpatient and eventually cardioverted as an outpatient if necessary. Complications: none Allergies: Coded Allergies: azithromycin (DIFFICULTY BREATHING 11/02/16) benzonatate (DIFFICULTY BREATHING 11/02/16) oxycodone (From PERCOCET) (ITCH 11/02/16) Disposition Summary Disposition Principal Diagnosis: Atrial fibrillation Additional Diagnosis: heart murmur Discharge Disposition: home or self care Discharge Instructions General Discharge Information Code Status: Full Code Patient's Diet: Regular Patient's Activity: As per the patient Follow-Up Instructions/Appts: See Dr Osborne in the office in 24-48 hours Medications at Discharge Discharge Medications: Start taking the following new medications: Apixaban (Eliquis) 5 MG TABLET 5 Milligram ORAL TWICE DAILY Qty = 60 No Refills Comments: Last Taken:11/03/16 Time: 2:29P.M Diltiazem HCl (Cardizem) 30 MG TABLET 30 Milligram ORAL EVERY 8 HOURS Qty = 90 No Refills Comments: Last Taken:11/03/16 Time: 1:55P.M Copies To: BERNADETTE ROBLERO MD; Joshua OSBORNE MD Attending MD Review Statement Documenting Attending: Joshua OSBORNE MD
== END 2016-11-03 15:27 | DRG 201 ==
LOC: ENRESERVDT → ENRESERVTM → ERH 13:24 → ENPENDDIS 16:08 → ERHI 16:08 → 1NO 18:36
PROVIDERS: Emergency Medicine; Internal Medicine; ADMIT Specialist
DX: I48.91 Unspecified atrial fibrillation (principal); F17.200 Nicotine dependence, unspecified, uncomplicated; Z82.49 Family history of ischemic heart disease and other diseases of the circulatory system
CPT/HCPCS: 1NP; 82436; 93005; 93010; 96374; 96375; 99291; J0153; J1650